=== PATIENT | male | born 1965 | race Caucasian/White ===

== ENCOUNTER 2016-07-27 08:30 | Day surgery (SDC) | payer MEDICAID ==
[~2016-07-27] VITALS: Ht 175.3 cm; Wt 99.8 kg
[~2016-07-27 08:30] MED LIST: ASPIRIN 81MG TA81 MG PO; FLEXERIL10 MG PO; GABAPENTIN300 MG PO; LORAZEPAM0.5 MG/TAB PO; MORPHINE SULFAT15 M2 PO; NEURONTIN 100100 MG PO; NICOTINE T21 MG/24 H TD; NORCO1 TAB PO; OXYCODONE AND A1 TA3 PO; OXYCODONE SR 2020 MG PO; XANAX XR0.5 MG PO
[2016-07-27 12:18] VITALS: BP 132/88
--- NOTE | 2016-07-27 17:45 | Operative Note-Urology ---
Procedure/Operative Record Procedure DATE OF PROCEDURE: 07/27/16 PREOPERATIVE DIAGNOSIS: LEFT spermatocele POSTOPERATIVE DIAGNOSIS: Same PROCEDURE PERFORMED: LEFT spermatocelectomy SURGEON: Wicho Gibbs ANESTHESIA: Gen. SPECIMENS: LEFT spermatocele BRIEF HISTORY: Patient is 50 years of age with gradual enlargement of the LEFT epididymis becoming much more symptomatic. He had a recent ultrasound which demonstrated a 2 cm epididymal cyst this causes discomfort. We discussed options and he elects to proceed with surgical excision. Risks were discussed including bleeding infection and injury to the testis. He understands and wishes to proceed OPERATIVE NOTE: After satisfactory general anesthesia the scrotum was clipped rectum draped in standard fashion. The LEFT testis was exposed through a transverse scrotal incision. There was a small amount of reactive hydrocele fluid. The spermatocele was easily identified and carefully excised from the remainder of the epididymis. No excessive bleeding was noted. The testis appeared quite viable. Very inserted cautery was used and hemostasis achieved. The testis was returned to the scrotum. The scrotum was closed in the standard manner in 2 layers first with 2-0 chromic followed by 4-0 Monocryl at the skin level. Dermabond was placed over his incision. Prior to closure 10 mL of quarter strength Marcaine plain was injected into and around the cord. EBL (ml): 0 IMPRESSION: LEFT spermatocele PLAN: Followup 3 weeks at 1214
== END 2016-07-27 12:15 | disposition home or self-care (01) ==
LOC: SDC 08:30
PROVIDERS: Urology
PROC: 0VB Male Reproductive System, Excision (ICD-10-PCS; principal; 2016-07-27 10:00)
DX: N43.41 Spermatocele of epididymis, single (principal)
CPT/HCPCS: J2405

== ENCOUNTER → 2017-03-04 | Outpatient (CLI) | payer MEDICAID ==
--- NOTE | 2017-03-07 04:52 | RADIOLOGY REPORT PS360 ---
MRI-L-SPINE W/O, MRI-3D RENDERING/MYELOGRAM HISTORY: LUMBAR DISC DISEASE WITH RADICULOPATHY, low back pain with numbness and tingling down the left leg ORDERING PHYSICIAN: Chuy Robles MD PATIENT AGE: 51 years COMPARISON: 02/13/2015 TECHNIQUE: Standard multiplanar multiecho sequences are performed without contrast. 3-D MIP and myelographic images are also rendered and reviewed FINDINGS: Spinal cord ends at the T12-L1 level. There is normal alignment. T11-T12: Degenerative disc disease with endplate irregularity. T12-L1: Degenerative disc disease with endplate irregularity and minimal bulging disc slightly eccentric to the right with minimal right lateral recess narrowing. L1-L2: Mild facet and ligamentum flavum hypertrophy. L2-L3: Degenerative disc disease with bulging disc slightly eccentric towards the left lung facet and ligamentum flavum hypertrophy with mild bilateral lateral recess and foraminal narrowing. This is somewhat more prominent on the left. Unchanged. L3-L4: Severe degenerative disc disease with bulging disc along facet ligamentous hypertrophy. There is moderate to severe left sided foraminal narrowing not significant change. There is transverse narrowing of the canal at 12 mm. L4-L5: Degenerative disc disease with bulging disc with small broad-based central disc protrusion/disc osteophyte complex with moderate bilateral foraminal narrowing. Right-sided laminotomy defect is noted. Not significant changed. L5-S1: Unremarkable. Multilevel endplate changes are present with a Schmorl's node at L3 inferiorly. A small cystic area is present involving the medial aspect of the left ilium measuring 9 mm and may represent subarticular cyst. IMPRESSION: Multilevel lumbar spondylosis as detailed above with degenerative disc disease, endplate changes, facet and ligamentum flavum hypertrophy and bulging discs/disc osteophyte complexes with lateral recess and foraminal narrowing. Please see above for detailed description at each level. Overall no significant change from the previous exam. No extruded herniated disc. No acute fracture.
== END ==
LOC: RAD 11:14
DX: M51.16 Intervertebral disc disorders with radiculopathy, lumbar region (principal)